=== PATIENT | female | born 1990 | race Caucasian/White ===

== ENCOUNTER 2025-03-13 05:38 | Inpatient (IN) | payer BC ==
[~2025-03-13 05:38] MED LIST: Sodium Chloride 0.9% 10 ML Syringe FLUSH PRN
[2025-03-13] MEDS ORDERED: Sodium Chloride 0.9% 10 ML Syringe FLUSH PRN (05:50)
[2025-03-13] MEDS: Lactated Ringers 1,000 ML IV SCH (06:00)
[2025-03-13] MEDS ORDERED: Lactated Ringers 1,000 ML IV SCH (06:00)
[2025-03-13] MEDS ORDERED: Morphine PF 10 MG/10 ML SDV ONE (06:21)
[2025-03-13] MEDS ORDERED: Phenylephrine 1% 10 MG/ML SDV ONE (06:22)
[2025-03-13] MEDS ORDERED: Ondansetron 4 MG/2 ML SDV ONE (06:22)
[2025-03-13] MEDS ORDERED: dexmedeTOMIDine HCl 200 MCG/2 ML SDV ONE (06:22)
[2025-03-13 06:35] LABS: BASOPHILS ABSOLUTE AUTO 0.0 K/mm3 (0.0-0.2); BASOPHILS PERCENT AUTO 0.4 % (0.0-1.0); EOSINOPHILS ABSOLUTE AUTO 0.1 K/mm3 (0.0-0.4); EOSINOPHILS PERCENT AUTO 1.0 % (0.0-6.0); IMMATURE GRAN ABSOLUTE AUTO 0.05 K/mm3 (0.00-0.05); IMMATURE GRAN PERCENT AUTO 0.6 % (0.0-0.4); LYMPHOCYTES ABSOLUTE AUTO 1.7 K/mm3 (1.0-4.8); LYMPHOCYTES PERCENT AUTO 22.2 % (24.0-44.0); MEAN PLATELET VOLUME 10.8 fl (9.4-12.3); MONOCYTES ABSOLUTE AUTO 0.6 K/mm3 (0.0-0.8); MONOCYTES PERCENT AUTO 7.3 % (0.0-8.0); NEUTROPHILS ABSOLUTE AUTO 5.4 K/mm3 (1.8-7.7); NEUTROPHILS PERCENT AUTO 68.5 % (41.0-71.0); NRBC ABSOLUTE 0.00 (0.00-0.02); NRBC PERCENT 0.0 % (0.0-0.2); PLATELET COUNT,PLT 190 K/mm3 (150-400); RED BLOOD CELL COUNT 3.87 M/mm3 (4.10-5.30); WHITE BLOOD CELL COUNT,WBC 7.85 K/mm3 (3.9-11.3)
[2025-03-13] MEDS ORDERED: Oxytocin/0.9 % Sodium Chloride 30 UNIT/500 ML BAG IV SCH (07:00)
[2025-03-13] MEDS: Citric Acid/Sodium Citrate Solution 30 ML Cup PO ONE (07:21)
[2025-03-13] MEDS ORDERED: Lactated Ringers 1,000 ML ONE (07:34)
[2025-03-13] MEDS ORDERED: ePHEDrine 50 MG/ML SDV ONE (07:38)
[2025-03-13] MEDS ORDERED: Sodium Chloride 0.9% 50 ML SDV ONE (07:58)
[2025-03-13] MEDS ORDERED: Ropivacaine 0.5% 5 MG/ML 30 ML SDV ONE (07:58)
[2025-03-13] MEDS ORDERED: Ketorolac 30 MG/ML SDV ONE (07:58)
[2025-03-13] MEDS: Sodium Chloride 0.9% 10 ML Syringe FLUSH SCH ×2 (11:23→11:24)
[2025-03-13] MEDS ORDERED: ePHEDrine 50 MG/ML SDV IVPUSH PRN (11:28)
[2025-03-13] MEDS ORDERED: diphenhydrAMINE 50 MG/ML SDV IVPUSH PRN (11:28)
[2025-03-13] MEDS ORDERED: Naloxone 0.4 MG/ML SDV IVPUSH PRN (11:28)
[2025-03-13] MEDS: Ketorolac 30 MG/ML SDV IVPUSH SCH (16:13)
[2025-03-14] MEDS: Ketorolac 30 MG/ML SDV IVPUSH SCH (04:54)
[2025-03-14 06:18] LABS: MEAN PLATELET VOLUME 10.7 fl (9.4-12.3); NRBC ABSOLUTE 0.00 (0.00-0.02); NRBC PERCENT 0.0 % (0.0-0.2); PLATELET COUNT,PLT 157 K/mm3 (150-400); RED BLOOD CELL COUNT 3.09 M/mm3 (4.10-5.30); WHITE BLOOD CELL COUNT,WBC 9.34 K/mm3 (3.9-11.3)
== END 2025-03-15 12:25 | disposition home or self-care (01) | DRG 540 ==
LOC: JD.OB 05:38
PROVIDERS: ADMIT Obstetrics & Gynecology; ATTEND Obstetrics & Gynecology
PROC: 10D00Z1 Extraction of Products of Conception, Low, Open Approach (ICD-10-PCS; principal; 2025-03-13 07:30)
DX: O32.1XX0 Maternal care for breech presentation, not applicable or unspecified (principal); Z3A.39 39 weeks gestation of pregnancy; Z37.0 Single live birth; Z79.899 Other long term (current) drug therapy; Z98.890 Other specified postprocedural states
CPT/HCPCS: 01961; 36415; 59025; 64488; 85025; 85027; 86592; 86850; 86900; 86901; A9270-GY; J0690; J1885; J2274; J2371; J2405; J2765; J2795; J3490; J7120; J7121